=== PATIENT | male | born 1945 | race Caucasian/White ===

== ENCOUNTER 2023-08-14 10:34 | Inpatient (IN) ==
[2023-08-14 11:07] LABS: ABS Lymphocytes 0.6 10^3/uL (1.0-4.8); ABS Monocytes 0.6 10^3/uL (0.0-1.1); ABS Nucleated RBC 0.02 10^3/ul; Eosinophil % 0.2 %; Hematocrit 41.1 % (38-53); Hemoglobin 13.9 g/dL (13.2-16.3); Lymphocyte % 4.6 %; Mean Corpuscular Hemoglobin 27.8 pg (27-33); Mean Corpuscular Hgb Conc 33.9 g/dL (31-36); Mean Corpuscular Volume 82.1 fL (80-97); Mean Platelet Volume 6.7 fL (7.5-11.2); Nucleated Red Blood Cells % 0.2 %/100WBC (0.0-0.8); Platelet Count 532 10^3/uL (150-450); Red Cell Distribution Width 16.5 % (12-17); White Blood Count 12.2 10^3/uL (3.6-10.2)
[2023-08-14 11:27] LABS: High Sens Troponin Baseline 17 pg/mL (<20)
[2023-08-14] MEDS: Albuterol 2.5mg/3 ml (0.083%) NEB.SOLN INH ONE (12:00)
[2023-08-14 12:26] LABS: High Sensitivity Troponin 1 Hr 14 pg/mL (<20)
[2023-08-14 12:39] LABS: ALT 34 U/L (7-52); Albumin 4.1 g/dL (3.2-5.2); Albumin/Globulin Ratio 0.9 (1-3); Alkaline Phosphatase 94 U/L (35-149); Anion Gap 11 mmol/L (2-16); Blood Urea Nitrogen 33 mg/dL (6-24); CO2 Carbon Dioxide 23 mmol/L (22-32); Calcium 9.1 mg/dL (8.6-10.3); Chloride 100 mmol/L (101-111); Creatinine, Serum 1.91 mg/dL (0.67-1.17); Globulin 4.7 g/dL (2-4); Glucose 128 mg/dL (70-100); Sodium 134 mmol/L (135-145); Total Bilirubin 0.7 mg/dL (0.2-1.0); Total Protein 8.8 g/dL (6.4-8.9)
[2023-08-14] MEDS: Azithromycin 500 mg/250 ml NS 500 MG/250 ML BAG IVPB ONE (13:44)
[2023-08-14] MEDS: cefTRIAXone 1 gm/50 mL D5W 1 GM/50 ML BAG IV ONE (13:44)
[2023-08-14 14:20] LABS: INR 1.03 (0.83-1.13)
[2023-08-14] MEDS: Enoxaparin 40 MG/0.4 ML SYR SUBCUT SCH (15:13)
[2023-08-14 17:24] LABS: Potassium Redraw 3.5 mmol/L (3.5-5.0)
[2023-08-14] MEDS: Lactated Ringers 1000 ml BAG 1,000 ML IV SCH (17:42)
[2023-08-14] MEDS ORDERED: Dextrose 50% Syringe 50 ml 25 GM/50 ML SYRINGE IV PUSH PRN (18:23)
[2023-08-14] MEDS: CMCS: Pravastatin 20 mg TAB (NF) PO SCH (22:09)
[2023-08-14] MEDS: VIT C E ZN COPPR LUTEIN ZEAXAN PO SCH (22:09)
[2023-08-15 06:09] LABS: Calcium 8.5 mg/dL (8.6-10.3); Creatinine, Serum 1.72 mg/dL (0.67-1.17); Magnesium 2.3 mg/dL (1.9-2.7); Potassium 3.8 mmol/L (3.5-5.0); eGFR CKD-EPI 39.7 (>60)
[2023-08-15 07:15] LABS: ABS Eosinophils 0.1 10^3/uL (0.0-0.5); ABS Lymphocytes 0.8 10^3/uL (1.0-4.8); ABS Monocytes 0.5 10^3/uL (0.0-1.1); ABS Neutrophils 6.5 10^3/uL (1.5-7.6); ABS Nucleated RBC 0.01 10^3/ul; Eosinophil % 0.7 %; Hematocrit 35.8 % (38-53); Hemoglobin 11.9 g/dL (13.2-16.3); Lymphocyte % 10.6 %; Mean Corpuscular Hemoglobin 28.3 pg (27-33); Mean Corpuscular Hgb Conc 33.2 g/dL (31-36); Mean Platelet Volume 6.9 fL (7.5-11.2); Nucleated Red Blood Cells % 0.2 %/100WBC (0.0-0.8); Platelet Count 374 10^3/uL (150-450); Red Blood Count 4.21 10^6/uL (4.06-5.63); Red Cell Distribution Width 16.5 % (12-17); White Blood Count 7.8 10^3/uL (3.6-10.2)
[2023-08-15] MEDS ORDERED: cefTRIAXone 1 gm/50 mL D5W 1 GM/50 ML BAG IV SCH (13:30)
[2023-08-15] MEDS: cefTRIAXone 1 gm/50 mL D5W 1 GM/50 ML BAG IV SCH (14:15)
[2023-08-15] MEDS: NS 0.9% 1000 ml BAG 1,000 ML IV SCH (19:30)
[2023-08-16 08:32] LABS: ABS Eosinophils 0.1 10^3/uL (0.0-0.5); ABS Lymphocytes 0.5 10^3/uL (1.0-4.8); ABS Monocytes 0.4 10^3/uL (0.0-1.1); ABS Neutrophils 5.5 10^3/uL (1.5-7.6); ABS Nucleated RBC 0.01 10^3/ul; Eosinophil % 1.1 %; Hematocrit 36.1 % (38-53); Hemoglobin 11.9 g/dL (13.2-16.3); Lymphocyte % 7.6 %; Mean Corpuscular Volume 84.8 fL (80-97); Mean Platelet Volume 6.4 fL (7.5-11.2); Nucleated Red Blood Cells % 0.1 %/100WBC (0.0-0.8); Platelet Count 389 10^3/uL (150-450); Red Blood Count 4.26 10^6/uL (4.06-5.63); Red Cell Distribution Width 16.5 % (12-17); White Blood Count 6.5 10^3/uL (3.6-10.2)
[2023-08-16 08:46] LABS: Calcium 8.7 mg/dL (8.6-10.3); Creatinine, Serum 1.46 mg/dL (0.67-1.17); Potassium 4.2 mmol/L (3.5-5.0); eGFR CKD-EPI 48.3 (>60)
[2023-08-17 06:43] LABS: Calcium 9.2 mg/dL (8.6-10.3); Creatinine, Serum 1.07 mg/dL (0.67-1.17); Magnesium 2.2 mg/dL (1.9-2.7); Potassium 3.8 mmol/L (3.5-5.0); eGFR CKD-EPI 70.2 (>60)
[2023-08-17] MEDS ORDERED: Albuterol HFA INHALER 8 gm MDI INH PRN (11:36)
[2023-08-18 10:13] VITALS: BP 154/78
== END 2023-08-18 12:50 | disposition home or self-care (01) | DRG 193 ==
LOC: ED 10:34 → EDHOLD 10:34 → MED 20:51
PROVIDERS: ADMIT Hospitalist; ATTEND Hospitalist